=== PATIENT | male | born 2000 | race Caucasian/White ===

== ENCOUNTER 2020-07-26 05:39 | Emergency (ER) | payer MEDICAID ==
[~2020-07-26] VITALS: Ht 172.7 cm; Wt 76.2 kg
[2020-07-26 05:57] VITALS: BP_SYST 131
[2020-07-26] MEDS ORDERED: DIPH-TET-PERTUS Vaccine 0.5 ML VIAL (ADACEL) I.M. ONE (06:30)
[2020-07-26] MEDS ORDERED: BACI15OI27 TP (06:32)
[2020-07-26 06:40] VITALS: BP_SYST 131
== END 2020-07-26 06:45 ==
LOC: EDBD 05:39 → SED 05:39
DX: S20.312A Abrasion of left front wall of thorax, initial encounter (principal); V49.9XXA Car occupant (driver) (passenger) injured in unspecified traffic accident, initial encounter; Y93.89 Activity, other specified; Y92.413 State road as the place of occurrence of the external cause; Y99.8 Other external cause status
CPT/HCPCS: 90715; 99283